=== PATIENT | female | born 1995 | race Caucasian/White ===

== ENCOUNTER 2018-07-10 01:06 | Emergency (ER) | payer BC ==
[~2018-07-10] VITALS: Ht 162.6 cm; Wt 45.4 kg
[2018-07-10] MEDS ORDERED: CEPHALEXIN (01:22)
[2018-07-10] MEDS ORDERED: BIRTH CONTROL (01:22)
--- NOTE | 2018-07-10 01:30 | NUR ---
PATIENT IN BED AAOX4/ PACKER X4 NO RESPIRATORY DISTRESS NOTED . DENIES PAIN , BUT VERBALIZED LEFT LOWER LEG ITCHINESS .
[2018-07-10] MEDS ORDERED: NEOMY/BACITRA/POLYMYXIN B OINT UD PACKET TP ONE ×2 (01:35→01:45)
--- NOTE | 2018-07-10 01:45 | NUR ---
EXAMINED AND SEEN BY DR: CAROLINE ,WITH ORDER TO DO WOUND DRESSING . LEFT LOWER LEG WOUND DRESSING DONE ,CLEANSE WITH NORMAL SALINE ,PAT DRY ,APPLIED TIRPLE ANTIBIOTC OINTMENT COVER WITH BAND AIDE .
--- NOTE | 2018-07-10 01:54 | NUR ---
Patient discharged to home in stable conditon. Written and verbal after care instructions given. Patient verbalizes understanding of instructions.DENEIS PAIN ,NO RESPIRATORY DISTRESS .AMBULATORY AND STEADY OF GAIT .
[2018-07-10 02:01] VITALS: BP 122/87
== END 2018-07-10 02:02 | disposition home or self-care (01) ==
LOC: ER 01:12
DX: L03.116 Cellulitis of left lower limb (principal)
CPT/HCPCS: A4663